=== PATIENT | female | born 1970 | race Caucasian/White ===

== ENCOUNTER → 2016-06-14 | Outpatient (CLI) | payer OTHER | LOC: FIMAGING 15:39 | DX: Z12.31 Encounter for screening mammogram for malignant neoplasm of breast (principal) | CPT/HCPCS: G0202 ==

== ENCOUNTER → 2017-12-27 | Outpatient (CLI) | payer OTHER | LOC: FIMAGING 13:24 | PROVIDERS: ATTEND Family Medicine | DX: M25.562 Pain in left knee (principal); M22.42 Chondromalacia patellae, left knee; M25.462 Effusion, left knee ==